=== PATIENT | male | born 1980 | race Caucasian/White ===

== ENCOUNTER 2020-07-27 20:35 | Emergency (ER) | payer BC ==
[2020-07-27] MEDS ORDERED: Tetracaine HCl/PF 0.5% 4 ML Bottle EYEBOTH ONE (20:53)
[2020-07-27] MEDS ORDERED: Erythromycin Base 0.5% Ophth Oint 1 GM Tube EYERT ONE (21:20)
--- NOTE | 2020-07-27 21:34 | EDM.PDOC ---
ED HPI GENERAL MEDICAL PROBLEM - General Chief Complaint: Eye Problems Stated Complaint: RT EYE INJURY Time Seen by Provider: 07/27/20 20:36 Source of Information: Reports: Patient History Limitations: Reports: No Limitations - History of Present Illness INITIAL COMMENTS - FREE TEXT/NARRATIVE: HISTORY AND PHYSICAL: History of present illness: Patient is a 40-year-old male who presents to the ED today with concern of right eye injury that occurred just prior to arrival to the ED. Patient states that he had an air mattress that was tightly compacted underneath a bed. Patient states he was pulling hard on the air mattress to try to get it out from under the bed and it was not coming. Patient states suddenly the air mattress released and there was an air pump connected to the mattress. Patient states the air pump came and hit him directly in the right eye. Patient states that he went to look in the mirror and noticed that his right eye was distorted and states that since then the vision in his right eye is blurry. Patient states that he does not wear contacts or glasses and had LASIK eye surgery. Patient denies fever, chills, chest pain, shortness of breath, or cough. Denies headache, neck stiff ness, syncope, or near syncope. Denies nausea, vomiting, abdominal pain, diarrhea, constipation, or dysuria. Has not noted any blood in urine or stool. Patient has been eating and drinking appropriately. Review of systems: As per history of present illness and below otherwise all systems reviewed and negative. Past medical history: As per history of present illness and as reviewed below otherwise noncontributory. Surgical history: As per history of present illness and as reviewed below otherwise noncontributory. Social history: See social history for further information Family history: As per history of present illness and as reviewed below otherwise noncontributory. Physical exam: General: Patient is alert, oriented, and in no acute distress. Patient sitting comfortably on exam table. HEENT: Visual acuity is intact but decreased in the injured eye. EOMS intact without pain or difficulty. The right eye cornea is largely disrupted and e vidently abraded on exam prior to florescence stain. Fluroscene stain performed with evidence of large corneal abrasion. Bilateral upper and lower lids everted without sign of foreign body. Negative for corneal opacity, hyphema, or hypopyon. Otherwise, atraumatic, normocephalic, pupils equal and reactive bilaterally, negative for conjunctival pallor or scleral icterus, mucous membranes moist, TMs normal bilaterally, throat clear, neck supple, nontender, trachea midline. No drooling or trismus noted. No meningeal signs. No hot potato voice noted. Lungs: Clear to auscultation, breath sounds equal bilaterally, chest nontender. Heart: S1S2, regular rate and rhythm without overt murmur Abdomen: Soft, nondistended, nontender. Negative for masses or hepatosplenomegaly. Negative for costovertebral tenderness. Pelvis: Stable nontender. Genitourinary: Deferred. Rectal: Deferred. Skin: Intact, warm, dry. No lesions or rashes noted. Extremities: Atraumatic, negative for cords or calf pain. Neurovascular unremarkable. Neuro: Awake, alert, oriented. Cranial nerves II through XII unremarkable. Cerebellum unremarkable. Motor and sensory unremarkable throughout. Exam nonfocal. Notes: I did call and speak to unit assistant on-call, Dr. Chan, and thoroughly discussed patient's case. Although the abrasion is extensive, Dr. Chan suggest treating it like a typical corneal abrasion with placing erythromycin ophthalmic and then a eye patch over his eye for tonight. Dr. Chan will meet patient at his clinic tomorrow morning at [address] Chan states to give patient his personal cell phone number and for patient to call him if he needs to. Also suggests giving oral pain medication to get through tonight until he can be seen by Dr. Chan tomorrow. Signs and symptoms that would prompt return to the ED thoroughly discussed with patient. Discussed importance for follow-up with Dr. Chan, ophthalmology, tomorrow at 9 AM. Voices understanding and is agreeable to plan of care. Denies any further questions or concerns at this time. Diagnostics: Fluoroscene barcenas lamp Therapeutics: Erythromycin ophthalmic, patient discharged with this medication from ED, eye patch, tetracaine ophthalmic Prescription: [facility] 5/325 (#10) Impression: Corneal abrasion, right Blunt trauma to orbit, right Plan: 1. Keep the eye patch on until you see Dr. Chan tomorrow morning as discus sed. 2. You can alternate ibuprofen and Tylenol as directed for pain and discomfort. Use medication as prescribed for moderate to severe pain and discomfort. 3. Follow-up with Dr. Chan tomorrow at 9 AM at [facility] at the front door. His personal phone number is [phone]. Call his phone number if you need him tonight or have difficulty with follow up tomorrow morning. 4. Return to the ED as needed and as discussed. Definitive disposition and diagnosis as appropriate pending reevaluation and review of above. Right Eye Pain Score (Numeric/FACES): 6 - Related Data Allergies Allergy/AdvReac Type Severity Reaction Status Date / Time No Known Allergies Allergy Verified 07/27/20 21:19 Home Meds: Home Meds . [No Known Home Meds] 07/27/20 [History] Past Medical History - Infectious Disease History Infectious Disease History: Reports: Chicken Pox - Past Surgical History Male Surgical History: Reports: Vasectomy Musculoskeletal Surgical History: Reports: Shoulder Surgery Dermatological Surgical History: Reports: Other (See Below) Social & Family History - Family History Family Medical History: Noncontributory - Tobacco Use Smoking Status *Q: Never Smoker Second Hand Smoke Exposure: No - Recreational Drug Use Recreational Drug Use: No ED ROS GENERAL - Review of Systems Review Of Systems: Comprehensive ROS is negative, except as noted in HPI. ED EXAM GENERAL W FULL EYE - Physical Exam Exam: See Below (see dictation) Course - Vital Signs Last Recorded V/S: Last Vital Signs Temp 96.9 F 07/27/20 20:49 Pulse 72 07/27/20 20:49 Resp 14 07/27/20 20:49 BP 127/83 07/27/20 20:49 Pulse Ox 97 07/27/20 20:49 - Orders/Labs/Meds Orders: Active Orders 24 hr Category Date Time Status Communication Order [RC] STAT Care 07/27/20 21:20 Ordered Meds: Medications Discontinued Medications Generic Name Dose Route Start Last Admin Trade Name Freq PRN Reason Stop Dose Admin Erythromycin 1 gm 07/27/20 21:20 Erythromycin 0.5% Ophth Oint EYERT 07/27/20 21:21 ONETIME ONE Tetracaine HCl 2 ml 07/27/20 20:53 Tetracaine 0.5% Steri-Unit Cris EYEBOTH 07/27/20 20:54 ASDIRECTED ONE Departure - Departure Time of Disposition: 21:22 Disposition: Home, Self-Care 01 Clinical Impression: Corneal abrasion Qualifiers: Encounter type: initial encounter Laterality: right Qualified Code(s): S05.01XA - Injury of conjunctiva and corneal abrasion without foreign body, right eye, initial encounter Orbit trauma Qualifiers: Encounter type: initial encounter Laterality: right Qualified Code(s): S05.91XA - Unspecified injury of right eye and orbit, initial encounter - Discharge Information Referrals: PCP,Not In Area [Primary Care Provider] - Additional Instructions: The following information is given to patients seen in the emergency department who are being discharged to home. This information is to outline your options for follow-up care. We provide all patients seen in our emergency department with a follow-up referral. The need for follow-up, as well as the timing and circumstances, are variable depending upon the specifics of your emergency department visit. If you don't have a primary care physician on staff, we will provide you with a referral. We always advise you to contact your personal physician following an emergency department visit to inform them of the circumstance of the visit and for follow-up with them and/or the need for any referrals to a consulting specialist. The emergency department will also refer you to a specialist when appropriate. This referral assures that you have the opportunity for follow-up care with a specialist. All of these measure are taken in an effort to provide you with optimal care, which includes your follow-up. Under all circumstances we always encourage you to contact your private physician who remains a resource for coordinating your care. When calling for follow-up care, please make the office aware that this follow-up is from your recent emergency room visit. If for any reason you are refused follow-up, please contact the [facility] Emergency Department at and asked to speak to the emergency department charge nurse. [facility], Dr. Chan, Ophthalmology [address] [place] [address] 1. Keep the eye patch on until you see Dr. Chan tomorrow morning as discussed. 2. You can alternate ibuprofen and Tylenol as directed for pain and discomfort. Use medication as prescribed for moderate to severe pain and discomfort. 3. Follow-up with Dr. Chan tomorrow at 9 AM at [facility] at the front door. His personal phone number is [phone]. Call his phone number if you need him tonight or have difficulty with follow up tomorrow morning. 4. Return to the ED as needed and as discussed. Sepsis Event Note (ED) - Evaluation Sepsis Screening Result: No Definite Risk - Focused Exam Vital Signs: Vital Signs Temp Pulse Resp BP Pulse Ox 07/27/20 20:49 96.9 F 72 14 127/83 97 - My Orders Last 24 Hours: My Active Orders 07/27/20 21:20 Communication Order [RC] STAT - Assessment/Plan Last 24 Hours: My Active Orders 07/27/20 21:20 Communication Order [RC] STAT
== END 2020-07-27 21:50 | disposition home or self-care (01) ==
LOC: MW.ED 20:35
DX: S05.01XA Injury of conjunctiva and corneal abrasion without foreign body, right eye, initial encounter (principal); W22.8XXA Striking against or struck by other objects, initial encounter
CPT/HCPCS: 99283; A9270